=== PATIENT | female | born 1995 | race Caucasian/White ===

== ENCOUNTER 2025-01-30 09:19 | Emergency (ER) | payer OTHER ==
[2025-01-30 09:36] VITALS: RESP 18
--- NOTE | 2025-01-30 10:35 | XR ---
EXAMINATION TYPE: XR knee complete bilateral DATE OF EXAM: 01/30/2025 10:31 AM INDICATION: Patient age:Female; 29 years old; Reason for study: Pain; PHH. pain COMPARISON: Left knee radiograph 10/31/2012 TECHNIQUE: Both knees were examined in Frontal, lateral and oblique projections. FINDINGS: No evidence of any acute osseous pathology, or joint effusion is noted. Mild prepatellar left knee soft tissue swelling. IMPRESSION: 1. No acute osseous pathology. 2. Mild left prepatellar soft tissue swelling. [facility], , 01/30/2025 10:33 AM
--- NOTE | 2025-01-30 11:00 | ED ---
Lower Extremity Injury HPI - General Chief Complaint: Extremity Injury, Lower Stated Complaint: Moy knee pain Time Seen by Provider: 01/30/25 09:58 Source: patient, EMS, RN notes reviewed, Caregiver Mode of arrival: EMS Limitations: no limitations - History of Present Illness Initial Comments: This is a 29-year-old female who presents to the emergency department for bilateral knee pain. Patient currently lives in an [facility] home. They state that she was just transferred to their facility from [place]. She had been on Ativan 1 mg 4 times daily. However, this was written to be taken for seizures and she did not have any documentation sent with her regarding a history of seizures. Because of this nobody is refilling the prescription until they get documentation proving that it is needed. As a result, she had her last dose 4 days ago. The following day she started to have these intermittent tremors leading to falls. She never hits her head, she essentially drops to the ground. Yesterday and today she fell on her knees a couple of times, prompting her to come here for evaluation. Staff member at [facility] says that she may be playi ng into this a bit and does not think it is entirely real. She tends to gracefully just fall to the ground and seems to have some control of her symptoms. - Related Data Previous Rx's Medication Instructions Recorded FLUoxetine HCL [PROzac] 20 mg PO DAILY #30 cap 01/08/16 OLANZapine [ZyPREXA] 5 mg PO HS #30 tab 01/08/16 lamoTRIgine [LaMICtal] 200 mg PO BID #60 tab 01/08/16 traZODone HCL [Desyrel] 150 mg PO HS #30 tab 01/08/16 Allergies Allergy/AdvReac Type Severity Reaction Status Date / Time diphenhydramine HCl Allergy Rash/Hives Verified 01/30/25 15:34 [From Benadryl] oxcarbazepine Allergy Unknown Verified 01/30/25 15:34 [From Trileptal] tree nut [Nut] Allergy Rash/Hives Verified 01/30/25 15:34 red dye AdvReac Itching Verified 01/30/25 15:34 sun chips Allergy Unknown Uncoded 01/30/25 15:34 Review of Systems ROS Statement: Those systems with pertinent positive or pertinent negative responses have been documented in the HPI. ROS Other: All systems not noted in ROS Statement are negative. Past Medical History Past Medical History: Seizure Disorder Additional Past Medical History / Comment(s): mentally delayed History of Any Multi-Drug Resistant Organisms: None Reported Past Surgical History: No Surgical Hx Reported Past Psychological History: ADD/ADHD, Anxiety, Panic Disorder Past Alcohol Use History: None Reported Past Drug Use History: None Reported - Past Family History Father Additional Family Medical History / Comment(s): Father is alive at age 77 with no major medical problems. Mother Family Medical History: Cancer Additional Family Medical History / Comment(s): Mother is alive with history of leukemia. Brother(s) Additional Family Medical History / Comment(s): Patient has 4 brothers and 4 sisters with no major medical problems. General Exam Limitations: no limitations General appearance: alert, in no apparent distress Head exam: Present: atraumatic, normocephalic, normal inspection Respiratory exam: Present: normal lung sounds bilaterally. Absent: respiratory distress, wheezes, rales, rhonchi, stridor Cardiovascular Exam: Present: regular rate, normal rhythm Extremities exam: Present: other (Tenderness to palpation over the bilateral knees. Full range of motion. 2+ DP and PT pulses bilaterally.) Neurological exam: Present: alert, oriented X3, CN II-XII intact Psychiatric exam: Present: normal affect, normal mood Course Vital Signs 01/30/25 01/30/25 01/30/25 09:24 12:17 15:57 Temperature 98.2 F 98.3 F Pulse Rate 99 89 110 H Respiratory 18 18 18 Rate Blood Pressure 105/83 120/83 116/77 O2 Sat by Pulse 99 99 96 Oximetry Medical Decision Making - Medical Decision Making This is a 29 year old female who presents to the emergency department for bilateral knee pain and tremors. Was pt. sent in by a medical professional or institution? @ -No Did you speak to anyone other than the patient for history? @ -Yes, staff member at the patient's [facility] facility, who advised that they believe she is likely faking or exacerbating her symptoms for attention. Did you review nursing and triage notes? @ -Yes, and I agree, it is accurate with regards to the patient's symptoms. Were old charts reviewed? @ -No Differential Diagnosis? @ -Differential Musculoskeletal Muscular strain, contusion, ligament sprain, fracture, arthritis, septic arthritis, bursitis, cellulitis, muscle spasm, nerve compression, DVT, arterial occlusion, herpes zoster, electrolyte abnormality, tumor.... This is not meant to be in all inclusive list EKG interpreted by me (3pts min.)? @ -Not obtained X-rays interpreted by me (1pt min.)? @ -X-ray of the bilateral knees obtained. My interpretation identifies no acute fractures. CT interpreted by me (1pt min.)? @ -CT scan of the brain obtained. My interpretation identifies no acute intracranial hemorrhage. U/S interpreted by me (1pt. min.)? @ -Not obtained What testing was considered but not performed? (CT, X-rays, U/S, labs)? Why? @ -Lab work, however despite multiple attempts we were unable to get blood on the patient. What meds were considered but not given? Why? @ -None Did you discuss the management of the patient with other professionals? @ -Yes, Jana with [facility], who advised that the patient can be discharged back to her [facility] facility. Did you reconcile home meds? @ -No Was smoking cessation discussed for >3mins.? @ -No Was critical care preformed (if so, how long)? @ -No Were there social determinants of health that impacted care today? How? (Homelessness, low income, unemployed, alcoholism, drug addiction, transportation, low edu. Level, literacy, decrease access to med. care, fci, rehab)? @ -No Was there de-escalation of care discussed even if they declined? (Discuss DNR or withdrawal of care, Hospice)? @ -No What co-morbidities impacted this encounter? (DM, HTN, Smoking, COPD, CAD, Cancer, CVA, Hep., AIDS, mental health diagnosis, sleep apnea, morbid obesity)? @ -Intellectual disability, developmental delay, borderline personality disorder Was patient admitted / discharged? @ -Discharged. X-ray of the bilateral knees obtained revealing mild left prepatellar soft tissue swelling without other acute process. Patient appeared to have mild shaking on exam that did not appear consistent with any kind of neurological process such as seizure activity. When she would play on her phone or engage in activity, this would stop. Staff member from patient's [facility] facility also advised that whenever we left the room it would stop, but then s tart up again when we returned. Symptoms likely related to Ativan withdrawal with some psychological component. Advised that we can proceed with further testing to rule out other abnormalities, which they were in agreement with. CT scan of the brain obtained revealing no acute process. We attempted multiple times to get lab work, however several nursing members were unable to achieve this. Advised that we can avoid further attempts at this time, as it likely would not be of any benefit. Patient continued to asked to stay in the hospital overnight for observation of her shaking. Advised that this is not consistent with seizure activity and seems to be attention seeking behavior. States that she was concerned about falling again. Advised that she is in an [facility] home and can ask staff members for help whenever she needs to get up to get around or use the bathroom. This would be the same as if she was in the hospital and someone would help her around. She needs to be adamant about asking for help, and staff member states that she often tries to get up on her own, which is when the falls occur. They also advised that these do not necessarily seem to be "real" falls, and that she kind of just sits on the ground. When she was advised that she would not be admitted medically, she requested to speak with [facility]. [facility] evaluated the patient and advised that she could be discharged back to her [facility] facility. She was not exhibiting any suicidal/homicidal ideations or auditory/visual hallucinations. Safety plan was completed. Patient discharged back to [facility] home in stable condition. Case discussed with ED attending Dr. Fernandez. Return precautions reviewed in depth, the patient is instructed to return to the emergency department with any new, worsening, or concerning symptoms. Patient and staff member at [facility] home verbalized understanding. Undiagnosed new problem with uncertain prognosis? @ -None Drug Therapy requiring intensive monitoring for toxicity (Heparin, Nitro, Insulin, Cardizem)? @ -None Were any procedures done? @ -None Diagnosis/symptom? @ -Knee pain, fall, medication withdrawal Acute, or Chronic, or Acute on Chronic? @ -Acute Uncomplicated (without systemic symptoms) or Complicated (systemic symptoms)? @ -Uncomplicated Side effects of treatment? @ -None Exacerbation, Progression, or Severe Exacerbation] @ -Not applicable Poses a threat to life or bodily function? @ -No - Radiology Data Radiology results: report reviewed, image reviewed Disposition Clinical Impression: Knee pain, Fall, Medication withdrawal Disposition: HOME SELF-CARE Instructions (If sedation given, give patient instructions): Fall Prevention (ED) Additional Instructions: Return to the emergency department with any new, worsening, or concerning symptoms. Alternate with ibuprofen and Tylenol as needed for pain relief. The next time you try to stand up, make sure you ask somebody for help. Follow up with your primary care provider in 1-2 days. Is patient prescribed a controlled substance at d/c from ED?: No Referrals: Nonstaff,Physician [Primary Care Provider] - 1-2 days Time of Disposition: 15:28
[2025-01-30] MEDS: ACETAMINOPHEN TAB 500 MG TAB PO STA (11:16)
--- NOTE | 2025-01-30 11:54 | CT ---
EXAMINATION TYPE: CT brain wo con CT DLP: 1236 mGycm, Automated exposure control for dose reduction was used. DATE OF EXAM: 01/30/2025 11:47 AM COMPARISON: CT brain C-spine 08/30/2015 CLINICAL INDICATION:Female, 29 years old with history of Tremors, tremors TECHNIQUE: Brain: Multiple axial CT images of the brain were obtained without IV contrast. . Coronal and sagitta l reformats reviewed. FINDINGS: Brain: Extra-axial spaces: No abnormal extra-axial fluid collections. Ventricular system: Within normal limits Cerebral parenchyma: No acute intraparenchymal hemorrhage or mass effect. The grier-white junction is well differentiated. Empty sella morphology. Cerebellum: Again inferior protrusion of the cerebellar tonsils approximately 5 mm below the foramen magnum. Mass effect: No evidence of midline shift. Intracranial vasculature: unremarkable Soft tissues: Normal. Calvarium/osseous structures: No depressed skull fracture. Paranasal sinuses and mastoid air cells: Mild scattered paranasal sinus disease. Visualized orbits: Orbital contents are intact. Mildly divergent patient gaze suggesting underlying s trabismus again. IMPRESSION: 1. No acute intracranial process. 2. Cerebellar tonsillar ectopia again. Correlate for possible Chiari I malformation. Consider furthe r evaluation with MRI brain and cervical spine. [facility], , 01/30/2025 11:52 AM
[2025-01-30] MEDS: KETOROLAC 15 MG/ML 1 ML VIAL IVP STA (12:16)
[2025-01-30 15:59] VITALS: BP 116/77; PULSE 110; TEMP 98.3
== END 2025-01-30 16:04 | disposition home or self-care (01) ==
LOC: EC 09:19
DX: M25.562 Pain in left knee (principal); M25.561 Pain in right knee; F19.939 Other psychoactive substance use, unspecified with withdrawal, unspecified; G40.909 Epilepsy, unspecified, not intractable, without status epilepticus; F79 Unspecified intellectual disabilities; F60.3 Borderline personality disorder; Z13.42 Encounter for screening for global developmental delays (milestones); W18.39XA Other fall on same level, initial encounter
CPT/HCPCS: 99284; 96374; 73562; 70450; J1885

== ENCOUNTER 2025-01-31 16:45 | Emergency (ER) | payer MEDICARE, OTHER ==
[2025-01-31 16:58] VITALS: RESP 18
[2025-01-31 17:10] VITALS: TEMP 98.2
--- NOTE | 2025-01-31 17:24 | ED ---
General Adult HPI - General Chief complaint: Psychiatric Symptoms Stated complaint: withdrawals Time Seen by Provider: 01/31/25 16:54 Source: EMS Mode of arrival: EMS Limitations: no limitations - History of Present Illness Initial comments: This patient is a 29-year-old woman sent from care home to have evaluation for multiple recent falls. The patient states that she feels unsteady because her Ativan had been stopped on Monday. The patient's caregiver adds that the patient had been on Ativan, 1 mg, 3 times per day, for history of seizures but t hey state that she does not have seizures. The medication was stopped on Monday after 1 dose. The patient has not had any seizures since stopping the medication. They do state that she does seem to drop to the ground frequently. The patient is denying pain. She reportedly not having any injury related to the episodes. She has had some mild headache that seemed unrelated to the falls. Onset/Timin -: days(s) Location: head Consistency: constant Improves with: none Worsens with: none Associated Symptoms: other (falls) - Related Data Previous Rx's Medication Instructions Recorded FLUoxetine HCL [PROzac] 20 mg PO DAILY #30 cap 01/08/16 OLANZapine [ZyPREXA] 5 mg PO HS #30 tab 01/08/16 lamoTRIgine [LaMICtal] 200 mg PO BID #60 tab 01/08/16 traZODone HCL [Desyrel] 150 mg PO HS #30 tab 01/08/16 Allergies Allergy/AdvReac Type Severity Reaction Status Date / Time diphenhydramine HCl Allergy Rash/Hives Verified 01/31/25 16:58 [From Benadryl] oxcarbazepine Allergy Unknown Verified 01/31/25 16:58 [From Trileptal] tree nut [Nut] Allergy Rash/Hives Verified 01/31/25 16:58 red dye AdvReac Itching Verified 01/31/25 16:58 sun chips Allergy Unknown Uncoded 01/31/25 16:58 Review of Systems ROS Statement: Those systems with pertinent positive or pertinent negative responses have been documented in the HPI. ROS Other: All systems not noted in ROS Statement are negative. Constitutional: Reports: weakness. Denies: fever Respiratory: Denies: cough, dyspnea Cardiovascular: Denies: chest pain, syncope Gastrointestinal: Denies: abdominal pain, vomiting Musculoskeletal: Denies: back pain Skin: Denies: rash Neurological: Reports: headache. Denies: weakness, confusion Past Medical History Past Medical History: Seizure Disorder Additional Past Medical History / Comment(s): mentally delayed History of Any Multi-Drug Resistant Organisms: None Reported Past Surgical History: No Surgical Hx Reported Past Psychological History: ADD/ADHD, Anxiety, Panic Disorder Smoking Status: Never smoker Past Alcohol Use History: None Reported Past Drug Use History: None Reported - Past Family History Father Additional Family Medical History / Comment(s): Father is alive at age 77 with no major medical problems. Mother Family Medical History: Cancer Additional Family Medical History / Comment(s): Mother is alive with history of leukemia. Brother(s) Additional Family Medical History / Comment(s): Patient has 4 brothers and 4 sisters with no major medical problems. General Exam Limitations: no limitations General appearance: alert, in no apparent distress Head exam: Present: atraumatic, normocephalic Eye exam: Present: normal appearance. Absent: scleral icterus, conjunctival injection Neck exam: Present: normal inspection, full ROM Respiratory exam: Present: normal lung sounds bilaterally. Absent: respiratory distress, wheezes, rales, rhonchi, stridor, chest wall tenderness, accessory muscle use Cardiovascular Exam: Present: regular rate, normal rhythm, normal heart sounds. Absent: systolic murmur, diastolic murmur, rubs, gallop GI/Abdominal exam: Present: soft. Absent: distended, tenderness, guarding, rebound, mass Extremities exam: Present: normal inspection, normal capillary refill. Absent: pedal edema, calf tenderness Back exam: Present: normal inspection. Absent: CVA tenderness (R), CVA tenderness (L) Neurological exam: Present: alert Skin exam: Present: warm, dry, intact, normal color. Absent: rash Course Vital Signs 01/31/25 01/31/25 01/31/25 16:55 17:00 20:37 Temperature 98.7 F 98.2 F Pulse Rate 103 H 101 H 99 Respiratory 18 18 18 Rate Blood Pressure 127/75 127/90 142/98 O2 Sat by Pulse 98 97 98 Oximetry Medical Decision Making - Medical Decision Making The patient had CT scan of the brain that was negative for acute intracranial hemorrhage, mass effect or midline shift. Was pt. sent in by a medical professional or institution (CODY Castillo, CRUDE UNIT OPERATOR, urgent care, hospital, or group home...) When possible be specific @ -[No] Did you speak to anyone other than the patient for history (EMS, parent, family, police, friend...)? What history was obtained from this source @ -[History is contributed by patient's caregiver Did you review nursing and triage notes (agree or disagree)? Why? @ -[I reviewed and agree with nursing and triage notes] Were old charts reviewed (outside hosp., previous admission, EMS record, old EKG, old radiological studies, urgent care reports/EKG's, group home records)? Report findings @ -[No old charts were reviewed] Differential Diagnosis (chest pain, altered mental status, abdominal pain women, abdominal pain men, vaginal bleeding, weakness, fever, dyspnea, syncope, headache, dizziness, GI bleed, back pain, seizure, CVA, palpatations, mental health, musculoskeletal)? @ -[Differential Mental Health Depression, anxiety, bipolar, psychosis, schizophrenia, borderline personality, situational depression, adjustment disorder, behavioral disorder, brain tumor, malingering, substance abuse, encephalopathy, medication reaction, dementia, hypothyroidism, degenerative neurologic disorder, lupus.... This is not meant to be all-inclusive list EKG interpreted by me (3pts min.). @ -[As above] X-rays interpreted by me (1pt min.). @ -[None done] CT interpreted by me (1pt min.). @ -[I interpreted as above U/S interpreted by me (1pt. min.). @ -[None done] What testing was considered but not performed or refused? (CT, X-rays, U/S, labs)? Why? @ -[None] What meds were considered but not given or refused? Why? @ -[None] Did you discuss the management of the patient with other professionals (professionals i.e. CODY Castillo, CRUDE UNIT OPERATOR, lab, RT, psych nurse, social work assistant, machinist supervisor, teacher, sailing officer, case therapist)? Give summary @ -[No] Was smoking cessation discussed for >3mins.? @ -[No] Was critical care preformed (if so, how long)? @ -[No] Were there social determinants of health that impacted care today? How? (Homelessness, low income, unemployed, alcoholism, drug addiction, tra nsportation, low edu. Level, literacy, decrease access to med. care, prison, rehab)? @ -[No] Was there de-escalation of care discussed even if they declined (Discuss DNR or withdrawal of care, Hospice)? DNR status @ -[No] What co-morbidities impacted this encounter? (DM, HTN, Smoking, COPD, CAD, Can cer, CVA, ARF, Chemo, Hep., AIDS, mental health diagnosis, sleep apnea, morbid obesity)? @ -[None] Was patient admitted / discharged? Hospital course, mention meds given and route, prescriptions, significant lab abnormalities, going to OR and other pertinent info. @ -Patient is a 29-year-old woman here from care home to have evaluation related to some recent falls and appearing unsteady. The patient's physical exam unremarkable. The patient's workup is also benign. She does have symptoms consistent with benzodiazepine withdrawal but at this point stable to continue as outpatient. Undiagnosed new problem with uncertain prognosis? @ -[No] Drug Therapy requiring intensive monitoring for toxicity (Heparin, Nitro, Insulin, Cardizem)? @ -[No] Were any procedures done? @ -[No] Diagnosis/symptom? @ -[Acute benzodiazepine withdrawal Acute, or Chronic, or Acute on Chronic? @ -[Acute Uncomplicated (without systemic symptoms) or Complicated (systemic symptoms)? @ -[Uncomplicated Side effects of treatment? @ -[No] Exacerbation, Progression, or Severe Exacerbation? @ -[No] Poses a threat to life or bodily function? How? (Chest pain, USA, SD, pneumonia, PE, COPD, DKA, ARF, appy, cholecystitis, CVA, Diverticulitis, Homicidal, Suicidal, threat to staff... and all critical care pts) @ -[No] All treatments are based on ideal body weight as in ED triage - Lab Data Result diagrams: 01/31/25 19:14 01/31/25 19:14 Lab Results 01/31/25 01/31/25 Range/Units 19:14 19:14 WBC 8.3 (3.8-10.6) k/uL RBC 4.77 (3.80-5.40) m/uL Hgb 15.7 (11.4-16.0) gm/dL Hct 49.7 H (34.0-46.0) % MCV 104.3 H (80.0-100.0) fL MCH 32.9 (25.0-35.0) pg MCHC 31.5 (31.0-37.0) g/dL RDW 13.1 (11.5-15.5) % Plt Count 387 (150-450) k/uL MPV 6.5 Neutrophils % 55 % Lymphocytes % 37 % Monocytes % 4 % Eosinophils % 1 % Basophils % 1 % Neutrophils # 4.5 (1.3-7.7) k/uL Lymphocytes # 3.0 (1.0-4.8) k/uL Monocytes # 0.4 (0-1.0) k/uL Eosinophils # 0.1 (0-0.7) k/uL Basophils # 0.0 (0-0.2) k/uL Hypochromasia Slight Macrocytosis Slight Sodium 139 (137-145) mmol/L Potassium 3.9 (3.5-5.1) mmol/L Chloride 102 (98-107) mmol/L Carbon Dioxide 21 L (22-30) mmol/L Anion Gap 16 mmol/L BUN 11 (7-17) mg/dL Creatinine 0.80 (0.52-1.04) mg/dL Est GFR (CKD-EPI)AfAm >90 (>60 ml/min/1.73 sqM) Est GFR (CKD-EPI)NonAf >90 (>60 ml/min/1.73 sqM) Glucose 81 (74-99) mg/dL Calcium 10.1 (8.4-10.2) mg/dL Total Bilirubin 0.6 (0.2-1.3) mg/dL AST 27 (14-36) U/L ALT 19 (4-34) U/L Alkaline Phosphatase 91 (38-126) U/L Total Protein 8.0 (6.3-8.2) g/dL Albumin 5.1 H (3.5-5.0) g/dL Disposition Clinical Impression: Medication withdrawal Disposition: HOME SELF-CARE Condition: Good Instructions (If sedation given, give patient instructions): Dizziness (ED) Is patient prescribed a controlled substance at d/c from ED?: No Referrals: Nonstaff,Physician [Primary Care Provider] - 1-2 days
--- NOTE | 2025-01-31 19:22 | CT ---
EXAMINATION TYPE: CT brain wo con DATE OF EXAM: 01/31/2025 7:17 PM COMPARISON: None. CLINICAL INDICATION: Female, 29 years old with history of fall injury, Sent from [facility] for withdrawal s ymptoms. Patient off ativan x 4 days. Reports headache, shakiness and back pain., TECHNIQUE: Axial CT was performed with sagittal and coronal reformats. IV CONTRAST: , patient injected with mL of . (None if empty) CT DLP: 1128.4 mGycm, Automated exposure control for dose reduction was used. FINDINGS: The ventricles, basal cisterns and sulci overlying the cerebral convexities demonstrate a normal appe arance. There is no evidence for intracranial hemorrhage or sulcal effacement. No mass effects are seen. Osseous calvarium is intact. If symptoms persist consider MRI as clinically warranted. IMPRESSION: 1. No acute intracranial process is seen at this time. [facility], , 01/31/2025 7:19 PM
[2025-01-31 19:24] LABS: Basophils % (A) 1 %; Eosinophils # (A) 0.1 k/uL (0-0.7); Eosinophils % (A) 1 %; HCT 49.7 % (34.0-46.0); HGB 15.7 gm/dL (11.4-16.0); Hypochromasia Slight; Lymphocytes % (A) 37 %; MCH 32.9 pg (25.0-35.0); MCHC 31.5 g/dL (31.0-37.0); MCV 104.3 fL (80.0-100.0); Macrocytosis Slight; Mean Platelet Volume 6.5; Monocytes # (A) 0.4 k/uL (0-1.0); Monocytes % (A) 4 %; Neutrophils # (A) 4.5 k/uL (1.3-7.7); Neutrophils % (A) 55 %; Platelet Count 387 k/uL (150-450); RBC 4.77 m/uL (3.80-5.40); RDW 13.1 % (11.5-15.5); WBC 8.3 k/uL (3.8-10.6)
[2025-01-31 19:57] LABS: ALT 19 U/L (4-34); AST 27 U/L (14-36); African American GFR (CKD) >90 (>60 ml/min/1.73 sqM); Albumin 5.1 g/dL (3.5-5.0); Alkaline Phosphatase 91 U/L (38-126); Anion Gap 16 mmol/L; Blood Urea Nitrogen 11 mg/dL (7-17); Calcium 10.1 mg/dL (8.4-10.2); Carbon Dioxide 21 mmol/L (22-30); Chloride 102 mmol/L (98-107); Glucose 81 mg/dL (74-99); Non-African American GFR(CKD) >90 (>60 ml/min/1.73 sqM); Potassium 3.9 mmol/L (3.5-5.1); Sodium 139 mmol/L (137-145); Total Bilirubin 0.6 mg/dL (0.2-1.3)
[2025-01-31 20:38] VITALS: BP 142/98; PULSE 99
== END 2025-01-31 21:10 | disposition home or self-care (01) ==
LOC: EC 16:45
DX: F13.239 Sedative, hypnotic or anxiolytic dependence with withdrawal, unspecified (principal); Z88.8 Allergy status to other drugs, medicaments and biological substances; Z91.041 Radiographic dye allergy status; Z91.09 Other allergy status, other than to drugs and biological substances; Z91.018 Allergy to other foods
CPT/HCPCS: 36415; 70450; 80053; 82075; 85025; 99284; 99285